=== PATIENT | female | born 1965 | race Caucasian/White ===

== ENCOUNTER 2024-04-05 11:04 | Emergency (ER) | payer SELFPAY ==
[2024-04-05] VITALS (8 sets, daily range): BP systolic 112–129; BP diastolic 75–80; PULSE 63–86; RESP 16; TEMP 36.8; O2SAT 94–100; BMI 28.8
--- NOTE | 2024-04-05 12:04 | XRR_ITS ---
PROCEDURE INFORMATION: Exam: XR Right Humerus Exam date and time: 04/05/2024 12:31 PM Age: 58 years old Clinical indication: Shoulder; right; Patient HX: RT upper ext pain; RT humerus FX x 3 weeks ago-recent fall/reinjury TECHNIQUE: Imaging protocol: Radiologic exam of the right humerus. Views: 2 or more views. COMPARISON: CR (CHEST, ) 04/05/2024 12:31 PM FINDINGS: Bones/joints: There is a comminuted mildly impacted fracture of the surgical neck right humerus and comminuted fracture of the greater tuberosity. No bony remodeling and callus formation. No dislocation. No additional acute fracture. No definite extension of the humerus fracture to the articular surface of the humeral head. Distal humerus is intact. Thin nondisplaced serpiginous fracture line extends into the proximal metadiaphysis of the humerus. Soft tissues: Adjacent soft tissue edema. XR/[place] [id number] IMPRESSION: 1. No prior films are available to evaluate if there is a new superimposed on known subacute fracture. No bony remodeling or significant callus formation. Specifically, plain films have the appearance of an acute fracture. 2. There is a comminuted mildly impacted fracture of the surgical neck right humerus and comminuted fracture of the greater tuberosity. 3. Distal humerus is intact.
--- NOTE | 2024-04-05 12:04 | XRR_ITS ---
PROCEDURE INFORMATION: Exam: XR Right Shoulder Exam date and time: 04/05/2024 12:31 PM Age: 58 years old Clinical indication: Injury or trauma; Crushing; Right; Patient HX: RT upper ext pain; RT humerus FX x 3 weeks ago-recent fall/reinjury TECHNIQUE: Imaging protocol: Radiologic exam of the right shoulder. Views: 2 or more views. COMPARISON: [place] [id number] 04/05/2024 12:31 PM FINDINGS: Bones/joints: There is a comminuted mildly impacted fracture of the surgical neck right humerus and comminuted fracture of the greater tuberosity. No dislocation. No additional acute fracture. No definite extension of the humerus fracture to the articular surface of the humeral head. Thin nondisplaced serpiginous fracture line extends into the proximal metadiaphysis of the humerus. Soft tissues: Adjacent soft tissue edema. XR/XR shoulder RT min 2V* [id number] IMPRESSION: There is a comminuted mildly impacted fracture of the surgical neck right humerus and comminuted fracture of the greater tuberosity.
[2024-04-05] MEDS: ondansetron 4 MG Tablet PO (12:25)
[2024-04-05] MEDS: oxyCODONE-APAP 10-325 mg Tablet 1 TAB PO (12:25)
--- NOTE | 2024-04-05 13:25 | ED_ITS ---
HPI - Extremity Problem General: Chief complaint: Extremity Injury, Upper Stated complaint: pain in R. shoulder Time Seen by Provider: 04/05/24 11:48 History of Present Illness: This patient is a 58-year-old presenting with right shoulder pain. She reports that on March 12 she was in [facility] and fell. She was living there at the time. She was seen in the ER and was told that she had a humerus fracture and that it had done something to her rotator cuff as well. She had difficulty getting follow-up due to insurance issues. She arrived in this area on and plans to move here permanently. She fell again on and landed on that arm. She had been having significant pain all along but it became much worse after that second fall. She denies numbness or tingling in the hand. Her hand is somewhat swollen and stiff. She denies any other injuries. No prior injuries to the shoulder before this month. She denies any other medical problems. She does not have anything for pain at home. She did take some Tylenol prior to coming in. She is in obvious discomfort. Related Data Home Medications Medication Instructions Recorded Confirmed acetaminophen 325 mg tablet 325 mg PO QID PRN Pain 04/05/24 04/05/24 (Tylenol) Previous Rx's Medication Instructions Recorded naproxen 500 mg tablet,delayed 500 mg PO BID PRN pain #20 tabs 04/05/24 release oxycodone 10 mg tablet 10 mg PO Q4H #20 tabs 04/05/24 Physical Exam Const: COMMON NORMALS: patient oriented x3, no limitations and alert GENERAL APPEARANCE: cooperative HENMT: HEAD & SCALP: normal to inspection FACE & SINUS: normal facial exam Eye: GENERAL EYE: appearance normal, both eyes and all related structures Neck/C-Spine: COMMON NORMALS: supple, no meningeal signs and no JVD Chest: COMMONS NORMALS: normal inspection of the chest Resp: COMMON NORMALS: normal respiratory effort, No use of accessory muscles and clear to auscultation bilaterally AUSCULTATION: clear to auscultation bilaterally Cardio: COMMON NORMALS: no JVD, regular rate, regular rhythm and No murmurs present (Cardio) RATE: regular rate RHYTHM: regular rhythm Back/Pelvis: COMMON NORMALS: thoracic and lumbar spine normal to inspection Extremity: NARRATIVE EXTREMITY EXAM: Right upper extremity with limited range of motion of the shoulder and elbow. There is a sling in place. There is some bruising around the proximal humerus. Tenderness to palpation around the entire shoulder. The elbow appears without deformity. The wrist appears to be without deformity. She has good function of the radial, median, ulnar nerves. No decrease sensation over the deltoid. Neuro: COMMON NORMALS: patient oriented x3, moves all extremities, no focal motor deficits and no sensory deficits noted SENSORIUM/ORIENTATION: Yes alert MENINGEAL SIGNS: Yes no meningeal signs Psych: COMMON NORMALS: mental status grossly normal, cooperative and normal affect Skin: COMMON NORMALS: no rashes or lesions noted and turgor normal GENERAL SKIN EXAM: no rashes or lesions noted and turgor normal Course Vital Signs: Vital signs: Vital Signs Temperature 98.2 F 04/05/24 11:23 Pulse Rate 67 04/05/24 15:22 Respiratory Rate 16 04/05/24 12:25 Blood Pressure 117/80 04/05/24 15:22 Pulse Oximetry 98 04/05/24 15:22 Oxygen Delivery Me thod Room Air 04/05/24 11:23 MDM - Extremity (Nontraumatic) Medical Decision Making Patient has pain in her shoulder after a fall almost a month ago and then another fall a few days ago. The x-rays here show what appears to be an acute fracture. I am not sure what the initial x-rays look like as we do not have access to them. She is in obvious pain and tearful with exam of her shoulder. She was given Percocet after the initial fall and said it did help. I gave her oxycodone 10 here and she had no relief. I then gave some IM ketorolac and a dose of oral Ativan as a muscle relaxer. This seemed to help and she is comfortable enough to go home now. She will be given orthopedics referral, outpatient prescription for oxycodone. We discussed how to take [id number] acetaminophen and Naprosyn in combination with the oxycodone to manage pain. Lab Data Radiology Impressions Humerus X-Ray 04/05/24 12:04 IMPRESSION: 1. No prior films are available to evaluate if there is a new superimposed on known subacute fracture. No bony remodeling or significant callus formation. Specifically, plain films have the appearance of an acute fracture. 2. There is a comminuted mildly impacted fracture of the surgical neck right humerus and comminuted fracture of the greater tuberosity. 3. Distal humerus is intact. Shoulder X-Ray 04/05/24 12:04 IMPRESSION: There is a comminuted mildly impacted fracture of the surgical neck right humerus and comminuted fracture of the greater tuberosity. All radiology interpretation(s) finalized by discharge Discharge Plan Discharge Patient Disposition: Home Clinical Impression: Fracture of humerus Condition: Stable Prescriptions: New naproxen 500 mg tablet,delayed release (DR/EC) 500 mg PO BID PRN (Reason: pain) Qty: 20 0RF oxycodone 10 mg tablet 10 mg PO Q4H Qty: 20 0RF No Action acetaminophen [Tylenol] 325 mg Tablet 325 mg PO QID PRN (Reason: Pain) Discharge Orders: Discharge ED (Routine); Ordered 04/05/24 Ordered By: Niki Vang Referrals: Pop Ortega DO [Physician] - (Follow up for humerus fracture 03/12/24) Patient Instructions: Opioid Safety, Pain Management Activity Restrictions/Additional Instructions: Continue to use the arm sling. It is best to remove your arm from the sling at least 4 times a day and do gentle range of motion activity as much as you can tolerate. Follow-up with orthopedics as discussed. You may take the oxycodone as needed for pain. In addition to that you may take acetaminophen (Tylenol) - up to 1000 mg every 4 hours if needed for severe pain. You can take the prescribed Naprosyn which is 500 mg twice a day. If you take that do not also take ibuprofen. Coding Level of Care Code ED Refrigerated Cargo Clerk for Benito Low
[2024-04-05] MEDS: ketorolac 30 mg/mL INJ IM (14:09)
[2024-04-05] MEDS: LORazepam 1 mg Tablet PO (14:10)
--- NOTE | 2024-04-08 17:18 | DCPLANNER ---
Message sent to Ortho
== END 2024-04-05 15:24 | disposition home or self-care (01) ==
PROVIDERS: Emergency Provider Emergency Medicine
DX: S42.211A Unspecified displaced fracture of surgical neck of right humerus, initial encounter for closed fracture (principal); W19.XXXA Unspecified fall, initial encounter
CPT/HCPCS: 73030; 73060; 96372; 99284; J1885; Q0162

== ENCOUNTER 2024-04-29 11:06 | Emergency (ER) | payer SELFPAY ==
[2024-04-29 11:08] VITALS: BP 148/85; PULSE 90; RESP 17; TEMP 36.6; O2SAT 95; BMI 30.4
--- NOTE | 2024-04-29 11:10 | XRR_ITS ---
PROCEDURE INFORMATION: Exam: XR Right Elbow Exam date and time: 04/29/2024 11:19 AM Age: 58 years old Clinical indication: Injury or trauma; Fall; Blunt trauma (contusions or hematomas); Elbow; Right TECHNIQUE: Imaging protocol: Radiologic exam of the right elbow. Views: 3 or more views. COMPARISON: CR (CHEST, ) 04/29/2024 11:19 AM FINDINGS: Bones/joints: No acute fracture or malalignment. No worrisome lytic or blastic osseous lesion. No appreciable cortical erosion or periosteal reaction. Joint spaces are preserved. Soft tissues: No appreciable radiopaque foreign body or gas. XR/XR elbow RT min 3V* [id number] IMPRESSION: No acute fracture or malaligment.
--- NOTE | 2024-04-29 11:10 | XRR_ITS ---
PROCEDURE INFORMATION: Exam: XR Right Shoulder Exam date and time: 04/29/2024 11:19 AM Age: 58 years old Clinical indication: Injury or trauma; Fall; Blunt trauma (contusions or hematomas); Shoulder; Right TECHNIQUE: Imaging protocol: Radiologic exam of the right shoulder. Views: 2 or more views. COMPARISON: CR (CHEST, ) 04/05/2024 12:31 PM FINDINGS: Bones/joints: Comminuted, mildly displaced and impacted right humeral surgical neck fracture. Mild varus angulation. No distinct worrisome lytic or blastic osseous lesion. No appreciable scapular fracture. Soft tissues: Mild soft tissue swelling over the right shoulder. No radiopaque foreign body or gas. XR/XR shoulder RT min 2V* [id number] IMPRESSION: Comminuted, mildly displaced and impacted right humeral surgical neck fracture.
--- NOTE | 2024-04-29 11:11 | ED_ITS ---
HPI - Fall General: Chief Complaint: Extremity Injury, Upper Stated Complaint: Fall Time Seen by Provider: 04/29/24 11:08 Source: patient and EMS Mode of arrival: EMS Limitations: no limitations History of Present Illness: 58-year-old female who had a fractured h er right shoulder in March she states she is out walking her dog this morning slipped and fell again onto that right side states she hit her right elbow right shoulder having severe pain in the right shoulder. She is in a sling she rates her pain a 7 out of 10 denies any other injuries denies hitting her head. Associated symptoms-after fall: Denies abdominal pain, chest pain, headache(s) or neck pain Related Data Home Medications Medication Instructions Recorded Confirmed acetaminophen 325 mg tablet 325 mg PO QID PRN Pain 04/05/24 04/05/24 (Tylenol) Previous Rx's Medication Instructions Recorded naproxen 500 mg tablet,delayed 500 mg PO BID PRN pain #20 tabs 04/05/24 release oxycodone 10 mg tablet 10 mg PO Q4H #20 tabs 04/05/24 hydrocodone 5 mg-acetaminophen 325 1 tab PO Q6H PRN pain #14 tabs 04/29/24 mg tablet Allergies Allergy/AdvReac Type Severity Reaction Status Date / Time No Known Allergies Allergy Unverified 04/13/24 10:56 Review of Systems Const: Denies: fever(s), chills, body aches or change in appetite ENMT: Denies: throat pain or dental pain Card: Denies: chest pain Resp: Denies: dyspnea GI: Denies: abdominal pain, nausea, vomiting or diarrhea Musc: Reports: extremity pain; Denies: neck pain or back pain Skin/Breast: Denies: rash Neuro: Denies: headache(s) Physical Exam Const: COMMON NORMALS: no acute distress, patient oriented x3 and healthy appearing HENMT: COMMON NORMALS: normocephalic and atraumatic HEAD & SCALP: normocephalic and atraumatic Eye: COMMON NORMALS: conjunctivae normal CONJUNCTIVA: Yes conjunctivae normal Neck/C-Spine: COMMON NORMALS: full ROM and supple Chest: COMMONS NORMALS: normal inspection of the chest Resp: COMMON NORMALS: normal respiratory effort, No retractions, No use of accessory muscles and clear to auscultation bilaterally AUSCULTATION: clear to auscultation bilaterally Cardio: COMMON NORMALS: regular rate, regular rhythm and No murmurs present (Cardio) RATE: regular rate RHYTHM: regular rhythm Extremity: NARRATIVE EXTREMITY EXAM: Currently in sling tenderness to right elbow and right shoulder distal pulses sensation intact Neuro: COMMON NORMALS: patient oriented x3, moves all extremities and no focal motor deficits Psych: COMMON NORMALS: mental status grossly normal, Normal thought process present and cooperative THOUGHT PROCESS: Normal thought process present Skin: COMMON NORMALS: no rashes or lesions noted and no wounds GENERAL SKIN EXAM: no rashes or lesions noted Course Vital Signs: Vital signs: Vital Signs Temperature 97.9 F 04/29/24 11:08 Pulse Rate 90 04/29/24 11:08 Respiratory Rate 17 04/29/24 11:08 Blood Pressure 148/85 04/29/24 11:08 Pulse Oximetry 95 04/29/24 11:08 Oxygen Delivery Me thod Room Air 04/29/24 11:08 MDM - Fall Medical Decision Making Patient presents here after a fall imaging does show proximal humerus fracture she is to wear her sling will prescribe her pain meds we will get her follow-up with orthopedics she is to return if worsening no other injuries noted did not hit her head Medical Records I reviewed the patient's medical records. All radiology interpretation(s) finalized by discharge Discharge Plan Discharge Patient Disposition: Home Clinical Impression: Fracture of humerus Qualifiers: Encounter type: initial encounter Humerus Location: proximal Fracture type: closed Condition: Stable Prescriptions: New hydrocodone-acetaminophen 5-325 mg tablet 1 tab PO Q6H PRN (Reason: pain) Qty: 14 0RF No Action acetaminophen [Tylenol] 325 mg Tablet 325 mg PO QID PRN (Reason: Pain) naproxen 500 mg tablet,delayed release (DR/EC) 500 mg PO BID PRN (Reason: pain) Qty: 20 0RF oxycodone 10 mg tablet 10 mg PO Q4H Qty: 20 0RF Discharge Orders: Discharge ED (Routine); Ordered 04/29/24 Ordered By: Shelby Hernandez Referrals: Magdiel Frausto DO [Physician] - 4-7 days Discharge Diet: Advance as tolerated Discharge Activity: Resume usual activity Patient Instructions: Arm Fracture in Adults (ED), Opioid Safety Coding Level of Care Code ED Variety Saw Operator for Orianag Maranda
[2024-04-29] MEDS: LORazepam 2 mg/mL INJ 1 mL 1 MG IVP (11:33)
[2024-04-29 12:31] VITALS: BP 135/95; PULSE 81; O2SAT 98
--- NOTE | 2024-04-30 07:50 | DCPLANNER ---
messaged ortho for er f/u
== END 2024-04-29 12:32 | disposition home or self-care (01) ==
PROVIDERS: Emergency Provider Emergency Medicine
DX: S42.201A Unspecified fracture of upper end of right humerus, initial encounter for closed fracture (principal); W19.XXXA Unspecified fall, initial encounter
CPT/HCPCS: 73030; 73080; 96374; 99284; J2060

== ENCOUNTER → 2024-05-13 13:42 | Outpatient (BNVA) | payer SELFPAY | PROVIDERS: Visit Provider Physician Assistant | DX: S42.201A Unspecified fracture of upper end of right humerus, initial encounter for closed fracture; W18.39XA Other fall on same level, initial encounter; Y93.K1 Activity, walking an animal | CPT/HCPCS: 73030 ==

== ENCOUNTER 2024-05-13 15:37 | Outpatient (CLI) | payer SELFPAY | END 2024-05-13 15:38 | disposition home or self-care (01) | LOC: SPT 15:39 | PROVIDERS: Visit Provider Physician Assistant | DX: Z46.89 Encounter for fitting and adjustment of other specified devices (principal); S42.301D Unspecified fracture of shaft of humerus, right arm, subsequent encounter for fracture with routine healing; X58.XXXD Exposure to other specified factors, subsequent encounter | CPT/HCPCS: A4565 ==

== ENCOUNTER → 2024-05-28 13:37 | Outpatient (BNVA) | payer MEDICAID, SELFPAY | PROVIDERS: Visit Provider Physician Assistant | DX: S42.201D Unspecified fracture of upper end of right humerus, subsequent encounter for fracture with routine healing; X58.XXXD Exposure to other specified factors, subsequent encounter | CPT/HCPCS: 73030 ==

== ENCOUNTER → 2024-06-09 13:41 | Outpatient (BNVA) | payer MEDICAID, SELFPAY | PROVIDERS: Visit Provider Physician Assistant | DX: S42.201A Unspecified fracture of upper end of right humerus, initial encounter for closed fracture (principal); X58.XXXA Exposure to other specified factors, initial encounter | CPT/HCPCS: 73030 ==